=== PATIENT | female | born 1965 | race Caucasian/White ===

== ENCOUNTER 2024-03-21 17:40 | Emergency (ER) | payer BC ==
[~2024-03-21] VITALS: Ht 170.2 cm; Wt 52.0 kg
[2024-03-21] MEDS ORDERED: HYDROCODONE/ACETA 5/325 TAB PO ONE (19:15)
[2024-03-21 20:14] VITALS: BP 118/87
[2024-03-21] MEDS ORDERED: HYDROCODONE BIT/ACETAMINOPHEN 5/325 MG 1 TAB HOME.PACK PO ONE (20:15)
[2024-03-21] MEDS ORDERED: HYDROCODON-ACE1 EA10 PO (20:18)
== END 2024-03-21 20:28 | disposition home or self-care (01) ==
LOC: ED 17:40
DX: S52.592A Other fractures of lower end of left radius, initial encounter for closed fracture (principal); I48.91 Unspecified atrial fibrillation; I50.9 Heart failure, unspecified; G43.909 Migraine, unspecified, not intractable, without status migrainosus; Z88.8 Allergy status to other drugs, medicaments and biological substances; Z88.5 Allergy status to narcotic agent; Z79.01 Long term (current) use of anticoagulants; Z95.0 Presence of cardiac pacemaker; W17.89XA Other fall from one level to another, initial encounter
CPT/HCPCS: 29125; 73030; 73110; 99283-25; A9270